=== PATIENT | male | born 1975 | race African-American/Black ===

== ENCOUNTER 2018-09-29 08:17 | Inpatient (IN) ==
[2018-09-29] MEDS ORDERED: SODIUM CHLORIDE 0.9% 1,000 ML IV STA (09:14)
[2018-09-29] MEDS ORDERED: ONDANSETRON 4 MG/2 ML VIAL IV STA (09:14)
[2018-09-29] MEDS ORDERED: INSULIN REGULAR 100 UNIT/ML SUBCUT STA (09:14)
[2018-09-29 09:45] LABS: PT Patient Result 10.4 SECS; Partial Thromboplastin Time 22.8 SECS (0-40)
[2018-09-29 09:46] LABS: Basophils % 0.3 % (0.0-0.8); Eosinophils % 0.1 % (0.00-10.9); Hematocrit 50.3 VOL% (42.0-52.0); Hemoglobin 16.3 GM/DL (14.0-18.0); Immature Granulocytes % 0.4 %; Immature Granulocytes Absolute 0.05 #; Lymphocytes # 0.9 10*3/uL (1.4-4.0); Lymphocytes % 7.7 % (21.2-54.2); Mean Corpuscular HGB Conc 32.4 GM/DL (32-36); Mean Corpuscular Volume 90.3 FL (87-102); Mean Platelet Volume 13.3 FL (9.6-12.0); Monocytes % 4.2 % (1.7-12.7); Neutrophils % 87.3 % (38.7-73.9); Platelet Count 235 T/CUMM (130-400); Red Blood Count 5.57 MC/CUMM (3.8-5.5)
[2018-09-29 09:52] LABS: Alanine Aminotransferase 43 U/L (16-61); Albumin 4.6 G/DL (3.4-5.0); Alkaline Phosphatase 152 U/L (45-117); Amylase 45 U/L (25-115); Apearance,Urine CLEAR (Clear); Aspartate Amino Transferase 15 U/L (0-37); Bilirubin,Urine Negative (Negative); Blood Urea Nitrogen 23 MG/DL (7-18); Blood, Urine Negative (Negative); Glucose,Urine (UA) >=500 mg/dL (Negative); Ketones,Urine 20 mg/dL (Negative); Nitrite,Urine Negative (Negative); Osmolality,Calculated 321.5 MOS/KG (273-304); Protein,Urine Negative; RBC,Urine 2 /HPF (0-4); Total Protein 8.8 G/DL (6.4-8.3); Troponin I < 0.015 NG/ML (0.00-0.045); Urine Color Colorless (Yellow); Urine Specific Gravity 1.032 (1.001-1.035); Urine Urobilinogen < 2.0 EU/DL (0.2-1.0); WBC,Urine <1 /HPF (0-6)
[2018-09-29 09:53] LABS: Glucose 838 MG/DL (74-106)
[2018-09-29] MEDS ORDERED: LACTATED RINGERS 2,000 ML IV ONE (11:15)
[2018-09-29] MEDS ORDERED: INSULIN GLARGINE 100 UNIT/ML SUBCUT STA (11:16)
[2018-09-29] MEDS ORDERED: DEXTROSE 50% 25 GM/50 ML VIAL IV PRN ×2 (11:17)
[2018-09-29] MEDS ORDERED: GLUCAGON 1 MG VIAL IM PRN ×2 (11:17)
[2018-09-29] MEDS ORDERED: ONDANSETRON 4 MG/2 ML VIAL IV PRN (11:32)
[2018-09-29] MEDS ORDERED: ACETAMINOPHEN 325 MG TABLET PO PRN (11:32)
[2018-09-29] MEDS: PANTOPRAZOLE 40 MG TABLET PO SCH (11:57)
[2018-09-29] MEDS: ENOXAPARIN 40 MG/0.4 ML SYRINGE SUBCUT SCH (11:57)
[2018-09-29] MEDS: INSULIN REGULAR 100 UNIT/ML SUBCUT SCH ×3 (11:58→20:39)
[2018-09-29] MEDS: LACTATED RINGERS 1,000 ML IV SCH ×2 (14:00→21:26)
[2018-09-29 15:28] LABS: Calcium 9.7 MG/DL (8.5-10.1); Osmolality,Calculated 311.3 MOS/KG (273-304)
[2018-09-29] MEDS: INSULIN GLARGINE 100 UNIT/ML SUBCUT SCH (20:40)
[2018-09-30] MEDS: INSULIN REGULAR 100 UNIT/ML SUBCUT SCH ×6 (00:28→22:33)
[2018-09-30] MEDS: LACTATED RINGERS 1,000 ML IV SCH ×2 (04:11→11:17)
[2018-09-30 04:26] LABS: Calcium 9.1 MG/DL (8.5-10.1); Osmolality,Calculated 296.6 MOS/KG (273-304)
[2018-09-30 04:38] LABS: Risk Ratio 4.92; Thyroid Stimulating Hormone 1.01 uIU/ml (0.358-3.74); VLDL CHOLESTEROL 49.4 MG/DL
[2018-09-30] MEDS: PANTOPRAZOLE 40 MG TABLET PO SCH (10:04)
[2018-09-30] MEDS: POTASSIUM CHLORIDE 20 MEQ TABLET PO SCH ×3 (10:04→16:46)
[2018-09-30] MEDS: ENOXAPARIN 40 MG/0.4 ML SYRINGE SUBCUT SCH (11:09)
[2018-09-30] MEDS: INSULIN GLARGINE 100 UNIT/ML SUBCUT SCH (22:33)
[2018-10-01 06:01] LABS: Calcium 8.7 MG/DL (8.5-10.1)
[2018-10-01 08:09] VITALS: BP 128/87
[2018-10-01] MEDS: PANTOPRAZOLE 40 MG TABLET PO SCH (08:51)
[2018-10-01] MEDS: INSULIN REGULAR 100 UNIT/ML SUBCUT SCH (08:51)
== END 2018-10-01 11:15 | disposition home or self-care (01) | DRG 638 ==
LOC: N.ED 08:17 → N.EDINP 10:41 → N.CC 11:11 → N.ICU 16:03 → N.5E 09-30 11:30
PROVIDERS: ADMIT Internal Medicine; ATTEND Internal Medicine